=== PATIENT | male | born 1960 | race Caucasian/White ===

== ENCOUNTER 2019-04-07 18:15 | Emergency (ER) | payer OTHER ==
[~2019-04-07] VITALS: Ht 175.3 cm; Wt 86.0 kg
[2019-04-07 18:37] VITALS: Ht 175.3 cm; Wt 86.0 kg
[2019-04-07] MEDS ORDERED: IBUP-1542 PO (21:01)
--- NOTE | 2019-04-07 21:08 | ERD ---
ER Documentation Chief Complaint Chief Complaint R ankle pain while dancing HPI Patient is a 58-year-old mentally challenged male, who presents to the ER for concerns of right ankle pain which started earlier today. Per patient's caregiver, Nico, who brought the patient in, patient was dancing earlier today when they noticed that patient was not putting his foot down completely. Prior to this patient was at the gym and doing a balance beam. It is unclear if patient injured himself while at the gym. Patient has a previous fractures or dislocations. Patient has a past medical history of hypertension or hyperlipidemia. ROS All systems reviewed and are negative except as per history of present illness. Medications Home Meds Active Scripts Ibuprofen* (Motrin*) 600 Mg Tab, 600 MG PO Q6, #30 TAB Prov:DINO BANKS PA-C 04/07/19 Allergies Allergies: Coded Allergies: No Known Allergy (Unverified , 04/07/19) PMhx/Soc Hx Cardiac Disorders: Yes (UNSURE ) Hx Miscellaneous Medical Probl: Yes (MENTALLY CHALLENGED ) Hx Alcohol Use: No Hx Substance Use: No Hx Tobacco Use: No Smoking Status: Never smoker FmHx Family History: No diabetes Physical Exam Vitals Vital Signs Date Temp Pulse Resp B/P (MAP) Pulse Ox O2 O2 Flow FiO2 Time Delivery Rate 04/07/19 98.9 96 16 146/100 94 18:37 (115) Physical Exam GENERAL: Well-developed, well-nourished male. Appears in no acute distress. HEAD: Normocephalic, atraumatic. EYES: Pupils are equally reactive bilaterally. EOMs grossly intact. No conjunctival erythema. ENT: Moist mucous membranes. No uvula deviation. No kissing tonsils. NECK: Supple. No meningismus. Normal range of motion of the neck. LUNG: Clear to auscultation bilaterally. No rhonchi, wheezing, rales or coarse breath sounds. HEART: Regular rate and rhythm. No murmurs, rubs or gallops. EXTREMITIES: Equal pulses bilaterally. No peripheral clubbing, cyanosis or edema. No unilateral leg swelling. NEUROLOGIC: Alert and oriented. Moving all four extremities without any difficulty. Normal speech. Steady gait. SKIN: Normal color. Warm and dry. No rashes or lesions. RLE: No erythema, ecchymosis or deformity. Skin intact. Mild swelling noted to the lateral ankle. Decreased range of motion secondary to pain.. Sensation intact to light touch. Neurovascularly intact. (Able to plantarflex, dorsiflex, joe foot, invert foot, raise big toe.) 2+ DP and DT pulses. Procedures/MDM ED COURSE: The patient was stable throughout ED course. I kept the patient and/or family informed of laboratory and diagnostic imaging results throughout the ED course. DIAGNOSTIC IMAGING: Read by radiologist. Patient: ROXANA MILTON : 1960 Age: 58 Sex: M MR #: [id number] DOS: 04/07/19 1909 Ordering MD: DINO BANKS PA-C Location: [facility] Room/Bed: PROCEDURE: XR Right Ankle CLINICAL INDICATION: Pain TECHNIQUE: Standard 3 view radiographs were submitted. COMPARISON: None FINDINGS: Osseous structures: There is a curvilinear osseous fragment projecting inferior to the tip of the lateral malleolus suspicious for a tiny cortical avulsion. The osseous elements otherwise appear intact. There is calcaneal spurring at the insertion of the Achilles tendon and to a lesser extent at the insertion of the plantar aponeurosis. Joint spaces: Well maintained with no significant erosions or spurring evident. Soft tissues: There is considerable lateral soft tissue swelling. IMPRESSION: 1. Small cortical avulsion fragment projects inferior to the tip of the lateral malleolus. 2. Calcaneal spurring 3. Lateral soft tissue swelling. Physician Axel Date Time Electronically viewed and signed by Physician Axel on 04/07/2019 20:42 RH/ CC: DINO BANKS PA-C [id number] PROCEDURES: SPLINT APPLICATION: The patient was verbally consented at bedside prior to splint application. Patie nt was explained the risks, benefits and alternatives to this procedure. The patient was neurovascularly intact prior to and status post application of the splint. The patient tolerated the procedure well with no complications. Splint type: posterior ankle splint Extremity: right Indication: 1. Small cortical avulsion fragment projects inferior to the tip of the lateral malleolus. 2. Calcaneal spurring 3. Lateral soft tissue swelling. MEDICAL DECISION MAKING: This is a 58-year-old male presents the ER for concerns of ankle pain while at the gym. Vital signs were reviewed. Patient was afebrile. Xrays showed 1. Small cortical avulsion fragment projects inferior to the tip of the lateral malleolus. 2. Calcaneal spurring 3. Lateral soft tissue swelling. Patient was placed in a posterior ankle splint. Patient was given crutches to assist with ambulation. Patient advised to remain nonweightbearing to the affected extremity and follow-up with market development specialist. At this time, patient prior presentation is most consistent with distal malleolus fracture. Low suspicion for ankle dislocation, tibia fracture, tibial plateau fracture, Maisonneuve fracture, foot fracture, osteomyelitis, septic joint, gout, osteoarthritis, DVT, compartment syndrome or ankle sprain. At this time, unable to rule out any tendon and ligament injuries. PRESCRIPTIONS: Ibuprofen DISCHARGE: At this time, patient is stable for discharge and outpatient management. I have instructed the patient to follow-up with his/her primary care physician in 1-2 days. I have discussed with the patient the possibility of needing to see an market development specialist for further workup and imaging if the pain persists. I have instructed the patient to promptly return to the ER for any new or worsening symptoms including increased pain, swelling, redness, warmth or fever. The patient and/or family expressed understanding of and agreement with this plan. All questions were answered. Home care instructions were provided. Patients blood pressure was elevated (>120/80) but appears stable without evidence of hypertensive emergency, hypertensive urgency or end-organ failure. I had discussion with the patient about the risks of hypertension. I have advised the patient to follow up with his/her primary care physician for outpatient monitoring and treatment for hypertension in 2-3 days. I have instructed the patient to return to the ER for any new or worsening symptoms including chest pain, shortness of breath, headache, blurred vision, confusion, nausea, vomiting or LOC. Disclaimer: Inadvertent spelling and grammatical errors are likely due to EHR/dictation software use and do not reflect on the overall quality of patient care. Also, please note that the electronic time recorded on this note does not necessarily reflect the actual time of the patient encounter. Departure Diagnosis: Primary Impression: Fractured lateral malleolus Encounter type: initial encounter Fracture type: closed Fracture alignment: nondisplaced Laterality: right Qualified Codes: S82.64XA - Nondisplaced fracture of lateral malleolus of right fibula, initial encounter for closed fracture Condition: Fair Patient Instructions: Ankle Fracture (Distal Fibula), Closed Referrals: [facility] YOU HAVE RECEIVED A MEDICAL SCREENING EXAM AND THE RESULTS INDICATE THAT YOU DO NOT HAVE A CONDITION THAT REQUIRES URGENT TREATMENT IN THE EMERGENCY DEPARTMENT. FURTHER EVALUATION AND TREATMENT OF YOUR CONDITION CAN WAIT UNTIL YOU ARE SEEN IN YOUR DOCTORS OFFICE WITHIN THE NEXT 1-2 DAYS. IT IS YOUR RESPONSIBILITY TO M JESUS AN APPOINTMENT FOR FOLOW-UP CARE. IF YOU HAVE A PRIMARY DOCTOR --you should call your primary doctor and schedule an appointment IF YOU DO NOT HAVE A PRIMARY DOCTOR YOU CAN CALL OUR PHYSICIAN REFERRAL HOTLINE AT IF YOU CAN NOT AFFORD TO SEE A PHYSICIAN YOU CAN CHOSE FROM THE FOLLOWING [facility] [address] [facility] [email or web address] [facility] [facility] [address] [facility] [address] [facility] [address] [facility] [facility] [address] [facility] [facility] YOU HAVE RECEIVED A MEDICAL SCREENING EXAM AND THE RESULTS INDICATE THAT YOU DO NOT HAVE A CONDITION THAT REQUIRES URGENT TREATMENT IN THE EMERGENCY DEPARTMENT. FURTHER EVALUATION AND TREATMENT OF YOUR CONDITION CAN WAIT UNTIL YOU ARE SEEN IN YOUR DOCTORS OFFICE WITHIN THE NEXT 1-2 DAYS. IT IS YOUR RESPONSIBILITY TO MAKE AN APPOINTMENT FOR FOLOW-UP CARE. IF YOU HAVE A PRIMARY DOCTOR --you should call your primary doctor and schedule and appointment IF YOU DO NOT HAVE A PRIMARY DOCTOR YOU CAN CALL OUR PHYSICIAN REFERRAL HOTLINE AT . IF YOU CAN NOT AFFORD TO SEE A PHYSICIAN YOU CAN CHOSE FROM THE FOLLOWING [facility] INSTITUTIONS: [facility] [address] [place] [address] [facility] [address] [place] [address] [facility] [address] [place] [address] [facility] 7 a.m.- 11 p.m. Every Day of the Week NO APPOINTMENT OR AUTHORIZATION NEEDED SO [facility] Hours: Mon-Fri 9:00 AM - 5:00 PM Additional Instructions: Patient advised to remain nonweightbearing to the affected extremity until seen and cleared by market development specialist. Call your primary care doctor TOMORROW for an appointment during the next 1-2 days.See the doctor sooner or return here if your condition worsens before your appointment time. DINO BANKS PA-C Apr 07, 2019 21:08
[2019-04-07 21:25] VITALS: BP 138/74; PULSE 84; RESP 16
== END 2019-04-07 21:25 | disposition home or self-care (01) ==
LOC: FTE 18:15
DX: S82.64XA Nondisplaced fracture of lateral malleolus of right fibula, initial encounter for closed fracture (principal); I10 Essential (primary) hypertension; X50.1XXA Overexertion from prolonged static or awkward postures, initial encounter; Y92.39 Other specified sports and athletic area as the place of occurrence of the external cause